=== PATIENT | female | born 1950 | race Caucasian/White ===

== ENCOUNTER → 2024-08-04 | Outpatient (CLI) | payer OTHER, SELFPAY ==
[2024-08-04 08:06] LABS: Collection Type, Urine Clean Catch; Squamous Epithelial Cell,Urine 0 /hpf (0-5)
[2024-08-04 08:34] LABS: Basophils # (Auto) 0.1 Thou/mm3 (0.0-0.2); Basophils % (Auto) 2 % (0-2.5); Eosinophils # (Auto) 0.4 Thou/mm3 (0.0-0.5); Eosinophils % (Auto) 6 % (0-10); Hematocrit 42.9 % (36.0-46.0); Hemoglobin 14.3 g/dL (12.0-16.0); Immature Granulocytes % (Auto) 1 % (0-0); Immature Granulocytes Auto 0.04 Thou/mm3 (0.00-0.00); Lymphocytes # (Auto) 1.7 Thou/mm3 (1.0-4.8); Lymphocytes % (Auto) 25 % (10-50); Mean Corpuscular HGB Conc 33.3 g/dl (31.0-37.0); Mean Corpuscular Hemoglobin 27.7 pg (25.0-35.0); Mean Corpuscular Volume 83 fL (80-100); Monocytes # (Auto) 0.6 Thou/mm3 (0.0-0.8); Monocytes % (Auto) 9 % (0-12); Neutrophils % (Auto) 58 % (37-80); Nucleated Red Blood Cell % 0 /100 WBC (0); Platelet Count 794 Thou/mm3 (140-440); RDW Standard Deviation 42.5 fL (36.4-46.3); Red Blood Count 5.16 Miln/mm3 (4.00-5.20); White Blood Count 6.8 Thou/mm3 (3.6-11.0)
[2024-08-04 08:35] LABS: Bilirubin,Urine Negative (Negative); Blood,Urine Negative (Negative); Clarity,Urine Clear (Clear/Hazy); Color,Urine Lt-Yellow (Lt Yel-Yel); Glucose, Urine Negative (Negative); Ketones,Urine Negative (Negative); Leukocyte Esterase,Urine Negative (Negative); Nitrite,Urine Negative (Negative); Protein,Urine Negative (Neg - Trace); RBC,Urine 3 /hpf (0-3); Specific Gravity,Urine 1.012 (1.001-1.035); Urobilinogen,Urine Negative mg/dL (0.0-1.0); WBC,Urine 1 /hpf (0-5)
[2024-08-04 09:01] LABS: Alanine Aminotransferase 25 U/L (10-49); Albumin, Serum 4.6 gm/dL (3.4-4.8); Alkaline Phosphatase 158 U/L (46-116); Amylase 70 U/L (30-118); Anion Gap 7 (7-16); Aspartate Amino Transferase 22 U/L (0-34); BUN/Creatinine Ratio 19 Ratio (12-20); Bilirubin,Total 0.7 mg/dL (0.3-1.2); Blood Urea Nitrogen 17 mg/dL (9-23); Chloride 94 mMol/L (98-107); Creatinine (Component) 0.9 mg/dL (0.6-1.3); Globulin 2.3 gm/dL (2.3-3.5); Glucose 107 mg/dL (74-106); Lipase 36 U/L (12-53); Osmolality,Calculated 267 (275-295); Sodium 133 mMol/L (136-145); Total Protein 6.9 gm/dL (5.7-8.2); eGFR > 60 See Note
[2024-08-04 10:31] LABS: Path Review Blood Smear Sent to Pathologist
== END | disposition home or self-care (01) ==
PROVIDERS: PCP Family Medicine; Referring Provider Specialist; Visit Provider Specialist
DX: K20.90 Esophagitis, unspecified without bleeding (principal); Z98.84 Bariatric surgery status
CPT/HCPCS: 36415; 80053; 81001; 82150; 83690; 85025

== ENCOUNTER → 2024-10-14 | Outpatient (CLI) | payer OTHER, SELFPAY ==
--- NOTE | 2024-10-14 15:54 | XR_ITS ---
Examination:Right hip AP, lateral, AP pelvis 3 views Technique: Hip AP lateral, AP pelvis, 3 views Exam date and time:October 14, 2024 1614 hours INDICATIONS: Right hip pain several years. FINDINGS: Prominent osteopenia Moderate narrowing hip joints No hip or pelvic fracture IMPRESSION: Moderate narrowing bilateral hip joints.
== END | disposition home or self-care (01) ==
LOC: CDIM 15:42
PROVIDERS: PCP Family Medicine; Referring Provider Family Medicine; Visit Provider Family Medicine
DX: M25.852 Other specified joint disorders, left hip (principal); M25.851 Other specified joint disorders, right hip
CPT/HCPCS: 73502

== ENCOUNTER → 2024-12-24 | Outpatient (CLI) | payer OTHER, SELFPAY ==
--- NOTE | 2024-12-24 16:01 | XR_ITS ---
Examination: PA lateral chest 2 views TECHNIQUE: Upright PA and lateral chest 2 views Date and time: December 24, 2024 1612 hours Comparison August 25, 2022 INDICATIONS: History pneumonia left-sided chest pain 10 days FINDINGS: Normal heart size. No current pneumonia Moderate thoracic dextroscoliosis IMPRESSION: No current pneumonia
== END | disposition home or self-care (01) ==
PROVIDERS: PCP Internal Medicine; Referring Provider Internal Medicine; Visit Provider Student in an Organized Health Care Education/Training Program
DX: J06.9 Acute upper respiratory infection, unspecified (principal)
CPT/HCPCS: 71046

== ENCOUNTER → 2024-12-31 | Outpatient (CLI) | payer OTHER, SELFPAY ==
[2024-12-31 11:13] LABS: Basophils # (Auto) 0.1 Thou/mm3 (0.0-0.2); Basophils % (Auto) 1 % (0-2.5); Eosinophils # (Auto) 0.4 Thou/mm3 (0.0-0.5); Eosinophils % (Auto) 4 % (0-10); Hematocrit 40.5 % (36.0-46.0); Hemoglobin 14.2 g/dL (12.0-16.0); Immature Granulocytes % (Auto) 2 % (0-0); Lymphocytes # (Auto) 2.1 Thou/mm3 (1.0-4.8); Lymphocytes % (Auto) 20 % (10-50); Mean Corpuscular HGB Conc 35.1 g/dl (31.0-37.0); Mean Corpuscular Hemoglobin 29.4 pg (25.0-35.0); Mean Corpuscular Volume 84 fL (80-100); Monocytes # (Auto) 1.1 Thou/mm3 (0.0-0.8); Monocytes % (Auto) 11 % (0-12); Neutrophils # (Auto) 6.5 Thou/mm3 (1.8-7.7); Neutrophils % (Auto) 63 % (37-80); Nucleated Red Blood Cell % 0 /100 WBC (0); Platelet Count 922 Thou/mm3 (140-440); RDW Standard Deviation 43.8 fL (36.4-46.3); Red Blood Count 4.83 Miln/mm3 (4.00-5.20); White Blood Count 10.4 Thou/mm3 (3.6-11.0)
[2024-12-31 11:31] LABS: Glucose Estimated Average 111 mg/dL (80-131); Hemoglobin A1C 5.5 % Hgb (4.8-6.0)
[2024-12-31 11:35] LABS: Creatinine MALB Rnd Ur 65 mg/dL (30-125); Microalbumin Creat Ratio 48 mg/gCrea (<30); Microalbumin, Random Urine 31 mg/L (0-300)
[2024-12-31 11:41] LABS: Alanine Aminotransferase 19 U/L (10-49); Albumin, Serum 4.4 gm/dL (3.4-4.8); Albumin/Globulin Ratio 1.9 (1.2-2.2); Alkaline Phosphatase 132 U/L (46-116); Anion Gap 8 (7-16); BUN/Creatinine Ratio 22 Ratio (12-20); Bilirubin,Total 0.5 mg/dL (0.3-1.2); Blood Urea Nitrogen 24 mg/dL (9-23); Calcium 9.4 mg/dL (8.3-10.6); Calcium (Corrected) 9.4 mg/dL (8.5-10.1); Carbon Dioxide 32.4 mMol/L (20.0-31.0); Chloride 96 mMol/L (98-107); Creatinine (Component) 1.1 mg/dL (0.6-1.3); Globulin 2.3 gm/dL (2.3-3.5); Glucose 67 mg/dL (74-106); Osmolality,Calculated 273 (275-295); Potassium 5.2 mMol/L (3.4-5.1); Sodium 136 mMol/L (136-145); Thyroid Stimulating Hormone 3.27 uIU/mL (0.55-4.78); Total Protein 6.7 gm/dL (5.7-8.2); eGFR 53 See Note
== END | disposition home or self-care (01) ==
LOC: COPL 10:16
PROVIDERS: PCP Family Medicine; Referring Provider Internal Medicine; Visit Provider Internal Medicine
DX: I10 Essential (primary) hypertension (principal); F32.9 Major depressive disorder, single episode, unspecified; K21.9 Gastro-esophageal reflux disease without esophagitis; M25.551 Pain in right hip; R53.83 Other fatigue; E11.65 Type 2 diabetes mellitus with hyperglycemia
CPT/HCPCS: 36415; 80053; 82043; 82570; 83036; 84443; 85025

== ENCOUNTER 2025-01-01 09:28 | Outpatient (AMB) | payer OTHER, SELFPAY ==
[2025-01-01 09:41] VITALS: BP 139/75; PULSE 78; RESP 17; TEMP 36.2; O2SAT 97; BMI 26.2
--- NOTE | 2025-01-01 09:41 | ORTHONT_ITS ---
Vital signs 01/01/25 09:41 Height 1.75 m Height Method Stated Weight 80.739 kg Weight Measurement Method Standing Scale BMI 26.2 BP 139/75 H Blood Pressure Source Automatic Cuff Blood Pressure Location Right Upper Arm Position Sitting Respiration 17 Pulse 78 Pulse Source Monitor Temp 97.2 F Temp Source Temporal Artery Scan Pulse Oximetry (%) 97 Oxygen Delivery Method Room Air Med/Allergies Allergies & Medications Allergies Latex, Natural Rubber Allergy (Mild, Verified 01/01/25 09:42) Rash Sulfa (Sulfonamide Antibiotics) Allergy (Mild, Verified 01/01/25 09:42) Hives diphenhydramine (From Benadryl) Allergy (Unknown, Verified 01/01/25 09:42) opposite effect adhesive tape Adverse Reaction (Severe, Verified 01/01/25 09:42) RIPS SKIN Medication Reconciliation losartan 100 mg tablet 100 mg PO QDAY High Blood Pressure ##0 05/29/13 [History Confirmed 01/01/25] buspirone 5 mg tablet 5 mg PO TID PRN Anxiety 02/11/19 [History Confirmed 01/01/25] Held on 04/11/24. Instructions: Resume on 04/12/24. amitriptyline 25 mg tablet 25 mg PO HS 04/10/24 [History Confirmed 01/01/25] amlodipine 2.5 mg tablet 2.5 mg PO DAILY 04/10/24 [History Confirmed 01/01/25] aspirin 81 mg tablet 81 mg PO QDAY 04/10/24 [History Confirmed 01/01/25] diclofenac sodium 1 % topical gel (Voltaren Arthritis Pain) 2 g topical QID 04/10/24 [History Confirmed 01/01/25] gabapentin 400 mg tablet 400 mg PO QDAY 04/10/24 [History Confirmed 01/01/25] Held on 04/11/24. Instructions: Resume on 04/12/24. hydrochlorothiazide 25 mg tablet 25 mg PO DAILY 04/10/24 [History Confirmed 01/01/25] meloxicam 15 mg tablet 15 mg PO DAILY 04/10/24 [History Confirmed 01/01/25] Held on 04/11/24. Instructions: Resume on 04/12/24. omeprazole 20 mg capsule,delayed release 20 mg PO QDAY 04/10/24 [History Confirmed 01/01/25] ondansetron 4 mg disintegrating tablet 4 mg PO BID PRN Nausea 04/10/24 [History Confirmed 01/01/25] Exam Exam Patient is in no acute distress and is cooperative with the examination today. Breathing is nonlabored. In no respiratory distress. Patient has no paraspinal tenderness. Spinal deformity cannot be appreciated. The gait of the patient is nonantalgic Bilateral extremities were evaluated and demonstrates sensation intact to light touch. Palpable pedal pulses are present. No significant edema is present. Bilateral knees were examined and the patient has full strength and range of motion.. The left hip was examined. Patient was able to flex to 90 degrees, adduct to 30 degrees, abduct to 40 degrees, internally rotate to 20 degrees, and externally rotate to 20 degrees. Patient has a negative logroll. Stinchfield is negative. The patient is nontender diffusely to touch. The right hip was examined. Patient was able to flex to 90 degrees, adduct to 30 degrees, abduct to 40 degrees, internally rotate to 20 degrees, and externally rotate to 20 degrees. Patient has a negative logroll. The stinchfield is negative. X-rays demonstrate Mild to moderate arthritis of the right hip. There is severe degenerative changes of the lumbar spine Assessment and Plan Problem List (1) Arthritis of right hip: Status: Acute Plan: Patient is a 74-year-old female with right hip pain that is Mainly located in the buttocks and does radiate down her legs. She has very little pain in the groin. Her hip examination is actually very benign. I suspect that a lot of the pain is from her back. We discussed that her there are different options. We can do a cortisone injection intra-articularly of her right hip to rule out the right hip as a source of the pain but I do think it is likely from the back given the severe degenerative changes. In addition, she has extremely high platelet values and is been increasing. I think they are worried about hematological issues currently and she is getting a workup for this. She reports that she feels very fatigued as well and does have constitutional symptoms. She is getting a workup currently and I discussed that this is pr obably the primary importance right now. (2) Back pain: Status: Acute Advanced Care Planning Discussion Advance care planning discussed with:: patient Office Procedures GNS Level of Care Nursing/Assessment Patient Status: Initial/New Patient Nursing Assessment/Reassesment: Medication Reconciliation, Update PMH in EMR and Vital Signs Coordination of Care: Complex Care and Chronic Disease 1-5, Education Complex Pt/Fam, Consent,records obtained, informed consent, 1 Ins Authorization, Lab and Imaging orders, Results/Orders obtained and Staff clarify orders New Patient Charge New Patient Point Assignment: 1124 New Patient Point Charge: HEALTH CARE SOCIAL WORKER Level 4 ([id number]) MA Intake Visit Data Collection New Patient or Established: Established Patient (seen at [facility] within 3 years) Reason for Visit:: RIGHT HIP PAIN Seen by Clinical Staff ONLY (RN/MA): No General Worker Required: No PCP or OBGYN visit in last 3 months: Yes Hx Now: No Do You Feel Safe at Home: Yes Authorities Contacted: N/A Questionairres Past Medical History Past Medical History Have you ever been diagnosed with any of the following: Neurological Problems Alzheimer's Disease: Yes (GETTING TESTED CURRENTLY) Seizures: No Head Trauma: Yes (due to fall) Cardiology Problems Peripheral Vascular Disease: Yes Congestive Heart Failure: No Edema: Yes (LEFT FOOT HAS MASS STATED BY PT) Hypertension: Yes Varicose Veins: Yes (RIGHT LEG HAD PROC) Respiratory Problems Chronic Obstructive Pulmonary Disease (COPD): No Asthma: Yes Bronchitis: Yes Pneumonia: Yes (2017) Sleep Apnea: Yes Stomache/Intestinal Problems Hemorrhoids: Yes (NO SURG) Gastroesophageal Reflux Disease: Yes Genital/Urinary Problems Renal Disease: No Kidney Stones: Yes Reproductive Problems Endometriosis: Yes (HYSTERECTOMY) Pelvic Inflammatory Disease: No Previous Pregnancies: Yes (X2) Musculoskeletal Problems Arthritis: Yes Degenerative Disk Disease: Yes Scoliosis: Yes (MILD) Fractures: Yes (LEFT KNEE NO SURG NO CAST) Head,Eye,Nose,Throat Problems Cataracts: Yes Endocrine Problems Diabetes Mellitus Type 1: No Diabetes Mellitus Type 2: Yes (no meds) Blood Problems Anemia: Yes Psychologic Problems Depression: Yes Anxiety: Yes Other Problems Hospitalization: No Shingles: No Falls: Yes Blood Transfusions: No Anesthesia Reactions: Yes (nausea/GI upset) Chemotherapy: No Radiation Therapy: No MRSA: No Chicken Pox: Yes Measles: Yes Mumps: Yes Clostridium Difficile: No 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 Abbe Almeida and Dr. Martinez Patient is a 74-year-old female with right hip pain that has been ongoing for a while. The pain is primarily in the buttocks and does radiate down her legs. She reports that she has been shorter on the left side. She denies any pain in the groin. She can still put on socks and shoes. She is not using any assistive device. There is very minimal pain in the groin Personal History Red flag PMH: none Pain Pain level (0-10): 10 Pain duration: 3.5 MONTHS Pain location: groin Pain quality: sharp and tingling Pain timing: night Associated signs & symptoms: stiffness Ambulatory data Ambulatory device: none Walking distance (minutes): 1 Treatments Number of previous injections: 0 Number of Physical Therapy sessions: 0 Improvement with NSAIDS: n/a Review of Systems Review of Systems: All systems negative unless otherwise noted in HPI.
== END 2025-01-01 09:53 | disposition home or self-care (01) ==
LOC: HODSRG 09:28
PROVIDERS: PCP Family Medicine; Referring Provider Family Medicine; Supervising Provider Orthopaedic Surgery Adult Reconstructive Orthopaedic Surgery; Visit Provider Orthopaedic Surgery Adult Reconstructive Orthopaedic Surgery
DX: M16.11 Unilateral primary osteoarthritis, right hip (principal); M25.551 Pain in right hip; M54.9 Dorsalgia, unspecified; M79.605 Pain in left leg; M79.604 Pain in right leg; I10 Essential (primary) hypertension; K21.9 Gastro-esophageal reflux disease without esophagitis; E11.9 Type 2 diabetes mellitus without complications
CPT/HCPCS: 99204; G0463

== ENCOUNTER → 2025-01-07 | Outpatient (CLI) | payer OTHER, SELFPAY ==
[2025-01-07 09:42] LABS: Basophils # (Auto) 0.1 Thou/mm3 (0.0-0.2); Basophils % (Auto) 1 % (0-2.5); Eosinophils # (Auto) 0.3 Thou/mm3 (0.0-0.5); Eosinophils % (Auto) 4 % (0-10); Hematocrit 38.8 % (36.0-46.0); Hemoglobin 13.1 g/dL (12.0-16.0); Immature Granulocytes % (Auto) 1 % (0-0); Immature Granulocytes Auto 0.04 Thou/mm3 (0.00-0.00); Lymphocytes % (Auto) 25 % (10-50); Mean Corpuscular HGB Conc 33.8 g/dl (31.0-37.0); Mean Corpuscular Hemoglobin 29.6 pg (25.0-35.0); Mean Corpuscular Volume 88 fL (80-100); Monocytes # (Auto) 0.5 Thou/mm3 (0.0-0.8); Monocytes % (Auto) 6 % (0-12); Neutrophils # (Auto) 4.9 Thou/mm3 (1.8-7.7); Neutrophils % (Auto) 63 % (37-80); Nucleated Red Blood Cell % 0 /100 WBC (0); Platelet Count 762 Thou/mm3 (140-440); RDW Standard Deviation 46.7 fL (36.4-46.3); Red Blood Count 4.43 Miln/mm3 (4.00-5.20); White Blood Count 7.9 Thou/mm3 (3.6-11.0)
[2025-01-07 10:08] LABS: Alanine Aminotransferase 33 U/L (10-49); Albumin, Serum 4.3 gm/dL (3.4-4.8); Albumin/Globulin Ratio 1.9 (1.2-2.2); Alkaline Phosphatase 110 U/L (46-116); Anion Gap 8 (7-16); Aspartate Amino Transferase 30 U/L (0-34); BUN/Creatinine Ratio 14 Ratio (12-20); Bilirubin,Total 0.5 mg/dL (0.3-1.2); Blood Urea Nitrogen 17 mg/dL (9-23); Calcium 9.3 mg/dL (8.3-10.6); Calcium (Corrected) 9.3 mg/dL (8.5-10.1); Carbon Dioxide 29.7 mMol/L (20.0-31.0); Chloride 102 mMol/L (98-107); Creatinine (Component) 1.2 mg/dL (0.6-1.3); Globulin 2.3 gm/dL (2.3-3.5); Glucose 93 mg/dL (74-106); Osmolality,Calculated 280 (275-295); Sodium 140 mMol/L (136-145); Total Protein 6.6 gm/dL (5.7-8.2); eGFR 48 See Note
[2025-01-14 06:44] LABS: ANA Pattern NUCLEAR, SPECKLED; ANA Screen, IFA POSITIVE (NEGATIVE); ANA Titer 1:40 titer
== END | disposition home or self-care (01) ==
LOC: COPL 08:33
PROVIDERS: PCP Family Medicine; Referring Provider Internal Medicine; Visit Provider Internal Medicine
DX: D75.838 Other thrombocytosis (principal); I10 Essential (primary) hypertension
CPT/HCPCS: 36415; 80053; 85025; 86038

== ENCOUNTER → 2025-01-26 | Outpatient (CLI) | payer OTHER, SELFPAY ==
[2025-01-26 13:34] LABS: Alanine Aminotransferase 20 U/L (10-49); Albumin, Serum 4.4 gm/dL (3.4-4.8); Albumin/Globulin Ratio 1.8 (1.2-2.2); Alkaline Phosphatase 136 U/L (46-116); Anion Gap 9 (7-16); Aspartate Amino Transferase 25 U/L (0-34); BUN/Creatinine Ratio 19 Ratio (12-20); Bilirubin,Total 0.4 mg/dL (0.3-1.2); Blood Urea Nitrogen 21 mg/dL (9-23); C-Reactive Protein < 0.5 mg/dL (0.0-0.9); Calcium 9.3 mg/dL (8.3-10.6); Calcium (Corrected) 9.3 mg/dL (8.5-10.1); Carbon Dioxide 30.0 mMol/L (20.0-31.0); Chloride 106 mMol/L (98-107); Creatinine (Component) 1.1 mg/dL (0.6-1.3); Globulin 2.5 gm/dL (2.3-3.5); Glucose 116 mg/dL (74-106); Magnesium 2.1 mg/dL (1.6-2.6); Osmolality,Calculated 292 (275-295); Potassium 4.3 mMol/L (3.4-5.1); Sodium 145 mMol/L (136-145); Total Protein 6.9 gm/dL (5.7-8.2); eGFR 53 See Note
[2025-01-26 14:11] LABS: Sed Rate (ESR) 7 mm/hr (0-30)
== END | disposition home or self-care (01) ==
LOC: COPL 11:30
PROVIDERS: PCP Internal Medicine; Referring Provider Internal Medicine; Visit Provider Internal Medicine
DX: N17.9 Acute kidney failure, unspecified (principal); S91.201A Unspecified open wound of right great toe with damage to nail, initial encounter
CPT/HCPCS: 36415; 80053; 83735; 85652; 86140

== ENCOUNTER → 2025-01-26 | Outpatient (CLI) | payer OTHER, SELFPAY ==
--- NOTE | 2025-01-26 15:30 | XR_ITS ---
Examination: Retroperitoneal ultrasound, complete Technique: Multiple high resolution grayscale images of the retroperitoneum obtained, including kidneys and bladder. Exam date and time:January 26, 2025 1559 hours INDICATIONS: Renal sonogram October 16, 2018 suspicious for solid mass upper pole right kidney 14 x 17 mm FINDINGS: Right kidney 9.5 cm renal cortex 1.5 cm, poorly visualized secondary to bowel gas LEFT kidney 10.5 cm renal cortex 1.4 cm Mild bilateral renal parenchymal scar formation No hydronephrosis Bladder prevoid volume 149 cc IMPRESSION: Limited study, no renal mass lesion noted. Consider CT scan abdomen kidneys post intravenous contrast follow-up
== END | disposition home or self-care (01) ==
LOC: CDIM 15:46
PROVIDERS: Referring Provider Internal Medicine; Visit Provider Internal Medicine
DX: N17.9 Acute kidney failure, unspecified (principal)
CPT/HCPCS: 76770

== ENCOUNTER → 2025-02-09 | Outpatient (CLI) | payer OTHER, SELFPAY ==
--- NOTE | 2025-02-09 14:30 | XR_ITS ---
Examination: MRI right foot, without contrast Date and time of exam: February 09, 2025, 1533 hours INDICATIONS: Nonhealing wound first digit noted as beginning 10 months ago, foot pain and swelling Technique: Multiple axial sagittal and coronal images of the right foot have been obtained with the Siemens high-resolution 1.5 [place] MRI scanner. Images obtained include T2-weighted fat-suppressed sagittal sections, TR 3500, TE 46, T2 weighted coronal fat suppressed images, TR 3050, TE 84, T2-weighted transverse fat suppressed images, TR 3260, TE 63, proton density transverse images, TR 4720 TE 46, and T1 weighted coronal images, TR 560, TE 13. Findings: Right foot moderate osteopenia No angelo cortical bone destruction Mild edema plantar to the first metatarsal Mild fluid in the first metatarsophalangeal joint. No soft tissue abscess. Flexor tendons intact. Prominent Achilles tendinosis. Mild plantar fasciitis IMPRESSION: Negative for osteomyelitis Negative for soft tissue abscess
== END | disposition home or self-care (01) ==
LOC: SMRI 14:32
PROVIDERS: PCP Internal Medicine; Referring Provider Internal Medicine; Visit Provider Internal Medicine
DX: M72.2 Plantar fascial fibromatosis (principal); S91.201A Unspecified open wound of right great toe with damage to nail, initial encounter; X58.XXXA Exposure to other specified factors, initial encounter
CPT/HCPCS: 73718

== ENCOUNTER → 2025-02-12 | Outpatient (CLI) | payer OTHER, SELFPAY ==
[2025-02-12 10:31] LABS: Misc Send Out* See Sep Rpt
[2025-02-12 11:31] LABS: Follicle Stimulating Hormone 67.55 mIU/mL (See Note)
[2025-02-12 11:34] LABS: Alanine Aminotransferase 22 U/L (10-49); Albumin, Serum 4.6 gm/dL (3.4-4.8); Albumin/Globulin Ratio 1.6 (1.2-2.2); Alkaline Phosphatase 140 U/L (46-116); Anion Gap 10 (7-16); Aspartate Amino Transferase 26 U/L (0-34); BUN/Creatinine Ratio 15 Ratio (12-20); Bilirubin,Total 0.8 mg/dL (0.3-1.2); Blood Urea Nitrogen 15 mg/dL (9-23); Calcium 9.6 mg/dL (8.3-10.6); Calcium (Corrected) 9.6 mg/dL (8.5-10.1); Carbon Dioxide 30.9 mMol/L (20.0-31.0); Chloride 95 mMol/L (98-107); Creatinine (Component) 1.0 mg/dL (0.6-1.3); Globulin 2.8 gm/dL (2.3-3.5); Glucose 121 mg/dL (74-106); Osmolality,Calculated 273 (275-295); Potassium 3.8 mMol/L (3.4-5.1); Sodium 136 mMol/L (136-145); Thyroid Stimulating Hormone 3.96 uIU/mL (0.55-4.78); Total Protein 7.4 gm/dL (5.7-8.2); eGFR 60 See Note
[2025-02-23 10:51] LABS: Estradiol, Ultrasensitive* <2 pg/mL; Luteinizing Hormone* 42.1 mIU/mL; Prolactin* 7.7 ng/mL; Testosterone,Total* 16 ng/dL (2-45)
== END | disposition home or self-care (01) ==
LOC: COPL 10:10
PROVIDERS: PCP Internal Medicine; Referring Provider Internal Medicine; Visit Provider Internal Medicine
DX: D35.2 Benign neoplasm of pituitary gland (principal); N17.9 Acute kidney failure, unspecified; D75.838 Other thrombocytosis; S91.201A Unspecified open wound of right great toe with damage to nail, initial encounter; X58.XXXA Exposure to other specified factors, initial encounter
CPT/HCPCS: 36415; 80053; 82670; 83001; 83002; 84146; 84305; 84403; 84443

== ENCOUNTER → 2025-02-17 | Outpatient (CLI) | payer OTHER, SELFPAY ==
[2025-02-17 11:43] LABS: Basophils # (Auto) 0.1 Thou/mm3 (0.0-0.2); Basophils % (Auto) 1 % (0-2.5); Eosinophils # (Auto) 0.3 Thou/mm3 (0.0-0.5); Eosinophils % (Auto) 4 % (0-10); Hematocrit 41.1 % (36.0-46.0); Hemoglobin 13.3 g/dL (12.0-16.0); Immature Granulocytes Auto 0.05 Thou/mm3 (0.00-0.00); Lymphocytes # (Auto) 1.7 Thou/mm3 (1.0-4.8); Lymphocytes % (Auto) 25 % (10-50); Mean Corpuscular HGB Conc 32.4 g/dl (31.0-37.0); Mean Corpuscular Hemoglobin 29.1 pg (25.0-35.0); Mean Corpuscular Volume 90 fL (80-100); Monocytes # (Auto) 0.4 Thou/mm3 (0.0-0.8); Monocytes % (Auto) 6 % (0-12); Neutrophils # (Auto) 4.4 Thou/mm3 (1.8-7.7); Neutrophils % (Auto) 63 % (37-80); Nucleated Red Blood Cell # 0.00 Thou/mm3 (0.00-0.00); Nucleated Red Blood Cell % 0 /100 WBC (0); Platelet Count 694 Thou/mm3 (140-440); RDW Standard Deviation 46.5 fL (36.4-46.3); Red Blood Count 4.57 Miln/mm3 (4.00-5.20); White Blood Count 7.0 Thou/mm3 (3.6-11.0)
== END | disposition home or self-care (01) ==
LOC: COPL 09:39
PROVIDERS: PCP Internal Medicine; Referring Provider Internal Medicine; Visit Provider Internal Medicine
DX: D47.3 Essential (hemorrhagic) thrombocythemia (principal)
CPT/HCPCS: 36415; 85025

== ENCOUNTER 2025-03-03 08:17 | Outpatient (AMB) | payer OTHER, SELFPAY ==
--- NOTE | 2025-03-03 08:18 | PD.ORTHCLVIS ---
Vital signs 03/03/25 08:27 Height 1.75 m Height Method Measured Weight 80.059 kg Weight Measurement Method Standing Scale BMI 26.1 BP 117/68 Blood Pressure Source Automatic Cuff Blood Pressure Location Left Upper Arm Position Sitting Respiration 18 Pulse 74 Pulse Source Monitor Temp 97.9 F Temp Source Temporal Artery Scan Pulse Oximetry (%) 98 Oxygen Delivery Method Room Air Med/Allergies Allergies & Medications Allergies Latex, Natural Rubber Allergy (Mild, Verified 03/03/25 08:28) Rash Sulfa (Sulfonamide Antibiotics) Allergy (Mild, Verified 03/03/25 08:28) Hives diphenhydramine (From Benadryl) Allergy (Unknown, Verified 03/03/25 08:28) opposite effect adhesive tape Adverse Reaction (Severe, Verified 03/03/25 08:28) RIPS SKIN Medication Reconciliation losartan 100 mg tablet 100 mg PO QDAY High Blood Pressure ##0 05/29/13 [History Confirmed 03/03/25] buspirone 5 mg tablet 5 mg PO TID PRN Anxiety 02/11/19 [History Confirmed 03/03/25] Held on 04/11/24. Instructions: Resume on 04/12/24. amitriptyline 25 mg tablet 25 mg PO HS 04/10/24 [History Confirmed 03/03/25] amlodipine 2.5 mg tablet 2.5 mg PO DAILY 04/10/24 [History Confirmed 03/03/25] aspirin 81 mg tablet 81 mg PO QDAY 04/10/24 [History Confirmed 03/03/25] diclofenac sodium 1 % topical gel (Voltaren Arthritis Pain) 2 g topical QID 04/10/24 [History Confirmed 03/03/25] gabapentin 400 mg tablet 400 mg PO QDAY 04/10/24 [History Confirmed 03/03/25] Held on 04/11/24. Instructions: Resume on 04/12/24. hydrochlorothiazide 25 mg tablet 25 mg PO DAILY 04/10/24 [History Confirmed 03/03/25] meloxicam 15 mg tablet 15 mg PO DAILY 04/10/24 [History Confirmed 03/03/25] Held on 04/11/24. Instructions: Resume on 04/12/24. omeprazole 20 mg capsule,delayed release 20 mg PO QDAY 04/10/24 [History Confirmed 03/03/25] ondansetron 4 mg disintegrating tablet 4 mg PO BID PRN Nausea 04/10/24 [History Confirmed 03/03/25] Exam Exam Patient is in no acute distress and is cooperative with the examination today. Breathing is nonlabored. In no respiratory distress. Patient has no paraspinal tenderness. Spinal deformity cannot be appreciated. The gait of the patient is nonantalgic Bilateral extremities were evaluated and demonstrates sensation intact to light touch. Palpable pedal pulses are present. No significant edema is present. Bilateral knees were examined and the patient has full strength and range of motion.. The left hip was examined. Patient was able to flex to 90 degrees, adduct to 30 degrees, abduct to 40 degrees, internally rotate to 20 degrees, and externally rotate to 20 degrees. Patient has a negative logroll. Stinchfield is negative. The patient is nontender diffusely to touch. The right hip was examined. Patient was able to flex to 90 degrees, adduct to 30 degrees, abduct to 40 degrees, internally rotate to 20 degrees, and externally rotate to 20 degrees. Patient has a negative logroll. The stinchfield is negative. X-rays demonstrate Mild to moderate arthritis of the right hip. There is severe degenerative changes of the lumbar spine Assessment and Plan Problem List (1) Arthritis of right hip: Status: Acute Plan: Patient is a 74-year-old female with right hip pain that is Mainly located in the buttocks and does radiate down her legs. She has very little pain in the groin. Her hip examination is actually very benign. I suspect that a lot of the pain is from her back. We discussed that her there are different options. We can do a cortisone injection intra-articularly of her right hip to rule out the right hip as a source of the pain but I do think it is likely from the back given the severe degenerative changes. In addition, she has extremely high platelet values and is been increasing. I think they are worried about hematological issues currently and she is getting a workup for this. She reports that she feels very fatigued as well and does have constitutional symptoms. She is getting a workup currently and I discussed that this is probably the primary importance right now. We discussed we can do a hip injection should she want (2) Back pain: Status: Acute Advanced Care Planning Discussion Advance care planning discussed with:: patient Office Procedures GNS Level of Care Nursing/Assessment Patient Status: Established Patient Nursing Assessment/Reassesment: Medication Reconciliation, Update PMH in EMR and Vital Signs Coordination of Care: Complex Care and Chronic Disease 1-5, Education Complex Pt/Fam, Consent,records obtained, informed consent, Results/Orders obtained and Staff clarify orders Established Patient Charge Established Patient Point Assignment: 95 Established Patient Point Charge: EP Level 3 (80-115) MA Intake Visit Data Collection New Patient or Established: Established Patient (seen at [facility] within 3 years) Reason for Visit:: RIGHT HIP PAIN Seen by Clinical Staff ONLY (RN/MA): No Steam Heating Installer Required: No PCP or OBGYN visit in last 3 months: Yes Hx Now: No Do You Feel Safe at Home: Yes Authorities Contacted: N/A Questionairres Past Medical History Past Medical History Have you ever been diagnosed with any of the following: Neurological Problems Alzheimer's Disease: Yes (GETTING TESTED CURRENTLY) Seizures: No Head Trauma: Yes (due to fall) Cardiology Problems Peripheral Vascular Disease: Yes Congestive Heart Failure: No Edema: Yes (LEFT FOOT HAS MASS STATED BY PT) Hypertension: Yes Varicose Veins: Yes (RIGHT LEG HAD PROC) Respiratory Problems Chronic Obstructive Pulmonary Disease (COPD): No Asthma: Yes Bronchitis: Yes Pneumonia: Yes (2017) Sleep Apnea: Yes Stomache/Intestinal Problems Hemorrhoids: Yes (NO SURG) Gastroesophageal Reflux Disease: Yes Genital/Urinary Problems Renal Disease: No Kidney Stones: Yes Reproductive Problems Endometriosis: Yes (HYSTERECTOMY) Pelvic Inflammatory Disease: No Previous Pregnancies: Yes (X2) Musculoskeletal Problems Arthritis: Yes Degenerative Disk Disease: Yes Scoliosis: Yes (MILD) Fractures: Yes (LEFT KNEE NO SURG NO CAST) Head,Eye,Nose,Throat Problems Cataracts: Yes Endocrine Problems Diabetes Mellitus Type 1: No Diabetes Mellitus Type 2: Yes (no meds) Blood Problems Anemia: Yes Psychologic Problems Depression: Yes Anxiety: Yes Other Problems Hospitalization: No Shingles: No Falls: Yes Blood Transfusions: No Anesthesia Reactions: Yes (nausea/GI upset) Chemotherapy: No Radiation Therapy: No MRSA: No Chicken Pox: Yes Measles: Yes Mumps: Yes Clostridium Difficile: No 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 Abbe Almeida and Dr. Martinez Patient is a 74-year-old female with right hip pain that has been ongoing for a while. The pain is primarily in the buttocks and does radiate down her legs. She reports that she has been shorter on the left side. She denies any pain in the groin. She can still put on socks and shoes. She is not using any assistive device. There is very minimal pain in the groin. she is still not sure if she wants a hip injection but a lot of the pain is in her buttocks Personal History Red flag PMH: none Pain Pain level (0-10): 2 Pain duration: 3.5 MONTHS Pain location: groin Pain quality: sharp and tingling Pain timing: night Associated signs & symptoms: stiffness Ambulatory data Ambulatory device: cane Walking distance (minutes): 1 Treatments Number of previous injections: 0 Number of Physical Therapy sessions: 0 Improvement with NSAIDS: n/a Review of Systems Review of Systems: All systems negative unless otherwise noted in HPI.
[2025-03-03 08:27] VITALS: BP 117/68; PULSE 74; RESP 18; TEMP 36.6; O2SAT 98; BMI 26.1
== END 2025-03-03 08:35 | disposition home or self-care (01) ==
PROVIDERS: PCP Family Medicine; Referring Provider Family Medicine; Supervising Provider Orthopaedic Surgery Adult Reconstructive Orthopaedic Surgery; Visit Provider Orthopaedic Surgery Adult Reconstructive Orthopaedic Surgery
DX: M16.11 Unilateral primary osteoarthritis, right hip (principal); M25.551 Pain in right hip; M54.9 Dorsalgia, unspecified; I10 Essential (primary) hypertension; K21.9 Gastro-esophageal reflux disease without esophagitis; E11.9 Type 2 diabetes mellitus without complications
CPT/HCPCS: 99213; G0463

== ENCOUNTER → 2025-03-06 | Outpatient (CLI) | payer OTHER, SELFPAY ==
--- NOTE | 2025-03-06 10:45 | XR_ITS ---
Examination: Breast ultrasound complete, bilateral Date and time of exam: March 06, 2025 1104 hours INDICATIONS: Mammogram February 18, 2024 focal asymmetry upper right breast Technique: Real-time grayscale ultrasonographic imaging bilateral breasts, including all 4 quadrants as well as nipple retroareolar and axillary regions. Findings: Sonographic images right breast 9:00 cyst 7 x 5 mm Sonographic images left breast No cystic or solid mass IMPRESSION: BI-RADS Category 2: Benign findings
--- NOTE | 2025-03-06 11:45 | XR_ITS ---
Examination: Screening digital mammography, bilateral Computer aided detection 3-D breast Tomosynthesis, bilateral Date and time of exam: March 06, 2025 1119 hours Compared to mammograms dating to March 08, 2021 Indication: Screening, Technique: Nonmagnified MLO, CC views of the breasts to been obtained, reconstructed from 3-D Tomosynthesis images. R2 computer aided detection program utilized for evaluation of suspicious masses and/or abnormal calcifications. 3-D Tomosynthesis images obtained. Findings: Scattered areas of fibroglandular density 18 mm focal asymmetry upper slightly outer left breast with mildly indistinct margins 4 mm partially circumscribed nodule upper outer right breast Impression: BI-RADS Category 0: Incomplete: Need additional imaging evaluation Recommend follow-up spot tomographic views of the 18 mm focal asymmetry upper outer left breast and 4 mm circumscribed nodule upper outer right breast as well as bilateral breast sonography to complete the workup.
== END | disposition home or self-care (01) ==
PROVIDERS: Referring Provider Family Medicine; Visit Provider Family Medicine
DX: Z12.31 Encounter for screening mammogram for malignant neoplasm of breast (principal); N63.11 Unspecified lump in the right breast, upper outer quadrant
CPT/HCPCS: 76641; 77063; 77067

== ENCOUNTER → 2025-03-13 | Outpatient (CLI) | payer OTHER, SELFPAY ==
--- NOTE | 2025-03-13 | XR_ITS ---
Examination: Diagnostic digital mammography, bilateral Computer aided detection 3-D breast Tomosynthesis, bilateral Date and time of exam: March 13, 2025 0846 hours INDICATIONS: Mammogram March 06, 2025 18 mm focal asymmetry upper outer left breast and 4 mm nodule upper outer right breast Technique: Nonmagnified MLO, CC views of the breasts to been obtained, reconstructed from 3-D Tomosynthesis images. R2 computer aided detection program utilized for evaluation of suspicious masses and/or abnormal calcifications. 3-D Tomosynthesis images obtained. Findings: Scattered areas of fibroglandular density Spot compression views do not demonstrate suspicious masses Focal asymmetry remains upper upper left breast on the MLO view Impression: BI-RADS Category 3: Probably benign findings One additional 6 month left mammogram follow-up is needed.
== END | disposition home or self-care (01) ==
LOC: CDIM 08:29
PROVIDERS: Referring Provider Internal Medicine; Visit Provider Internal Medicine
DX: R92.333 Mammographic heterogeneous density, bilateral breasts (principal)
CPT/HCPCS: 77062; 77066; G0279